=== PATIENT | male | born 1955 | race Caucasian/White ===

== ENCOUNTER 2018-05-31 16:29 | Emergency (ER) | payer BC ==
[2018-05-31 18:47] LABS: ABS Basophils 0.1 10^3/ul (0-0.2); ABS Eosinophils 0.1 10^3/ul (0-0.6); ABS Lymphocytes 2.2 10^3/ul (1.0-4.8); ABS Monocytes 0.7 10^3/ul (0-0.8); ABS Neutrophils 6.1 10^3/ul (1.5-7.7); ABS Nucleated RBC 0 10^3/ul; Eosinophil % 0.6 % (0-6); Hematocrit 43 % (42-52); Hemoglobin 14.9 g/dl (14.0-18.0); Lymphocyte % 23.6 % (25-47); Mean Corpuscular HGB Conc 35 g/dl (31-36); Mean Corpuscular Hemoglobin 29 pg (27-31); Mean Corpuscular Volume 85 fL (80-94); Mean Platelet Volume 7.2 um3 (7.4-10.4); Nucleated Red Blood Cells % 0.1; Platelet Count 276 10^3/ul (150-450); Red Blood Count 5.05 10^6/ul (4.00-5.40); Red Cell Distribution Width 14 % (10.5-15); White Blood Count 9.2 10^3/ul (3.5-10.8)
--- NOTE | 2018-05-31 18:57 | ED ---
Hypertension - HPI Summary HPI Summary: This pt is a 62 y/o male presenting to [facility] c/o hypertension today. Pt reports he has hx of HTN is currently on antihypertensive medications. Pt notes that for about 1 year he has had his blood pressure run around 130/80s. He just recently came back from his trip in [place] and found out one of his BP medications, Valsartan, was recalled. Pt was switched to Irbesartan 3 week ago and had his atenolol increased to 50 mg by his PCP recently. Pt has also taken approximately 12 pills of ibuprofen 200 mg that he purchased OTC in [place] and was told by his PCP's complaint investigations officer that this might contradict his blood pressure medications. He has an upcoming hip replacement surgery scheduled for July 19 for which he notes he has been resting more than usual in preparation for it. Denies chest pain, SOB, headache, blurry vision, abd pain, nausea, vomiting, diarrhea, constipation, swelling in LE. - History of Current Complaint Chief Complaint: EDHypertension Stated Complaint: HIGH BLOOD PRESSURE Time Seen by Provider: 05/31/18 18:32 Hx Obtained From: Patient Onset/Duration: Started Hours Ago, Still Present Timing: Lasting Hours Reported Blood Pressure Prior To Arrival: 190s/100s Aggravating Factor(s): Nothing Alleviating Factor(s): Nothing Associated Signs & Symptoms: Anxiety/Stress - recent stress, Other: - NEG: chest pain, SOB, headache, blurry vision, abd pain, nausea, vomiting, diarrhea, constipation, swelling in LE. - Allergies/Home Medications Allergies/Adverse Reactions: Allergies Allergy/AdvReac Type Severity Reaction Status Date / Time lisinopril Allergy Coughing Verified 05/31/18 16:46 PMH/Surg Hx/FS Hx/Imm Hx Endocrine/Hematology History: Denies: Hx Diabetes Cardiovascular History: Reports: Hx Hypercholesterolemia, Hx Hypertension Infectious Disease History: No Infectious Disease History: Denies: Traveled Outside the [place] in Last 30 Days - Family History Known Family History: Positive: Cardiac Disease - Father with fatal SC at 76 y/o - Social History Alcohol Use: None Substance Use Type: Reports: None Smoking Status (MU): Never Smoked Tobacco Review of Systems Negative: Fever, Chills Negative: Blurred Vision Cardiovascular: Other - hypertension Negative: Chest Pain Negative: Shortness Of Breath Negative: Abdominal Pain, Vomiting, Diarrhea, Nausea, Other - constipation Negative: Edema - in LE Negative: Headache All Other Systems Reviewed And Are Negative: Yes Physical Exam - Summary Physical Exam Summary: VITAL SIGNS: Reviewed. GENERAL: Patient is a well-developed and nourished male who is lying comfortable in the stretcher. Patient is not in any acute respiratory distress. HEAD AND FACE: No signs of trauma. No ecchymosis, hematomas or skull depressions. No sinus tenderness. EYES: PERRLA, EOMI x 2, No injected conjunctiva, no nystagmus. EARS: Hearing grossly intact. Ear canals and tympanic membranes are within normal limits. MOUTH: Oropharynx within normal limits. NECK: Supple, trachea is midline, no adenopathy, no JVD, no carotid bruit, no c- spine tenderness, neck with full ROM. CHEST: Symmetric, no tenderness at palpation LUNGS: Clear to auscultation bilaterally. No wheezing or crackles. CVS: Regular rate and rhythm, S1 and S2 present, no murmurs or gallops appreciated. ABDOMEN: Soft, non-tender. No signs of distention. No rebound, no guarding, and no masses palpated. Bowel sounds are normal. EXTREMITIES: FROM in all major joints, no edema, no cyanosis or clubbing. NEURO: Alert and oriented x 3. No acute neurological deficits. Speech is normal and follows commands. SKIN: Dry and warm Triage Information Reviewed: Yes Vital Signs On Initial Exam: Initial Vitals Temp Pulse Resp BP Pulse Ox 97.3 F 72 16 178/108 98 05/31/18 16:41 05/31/18 16:41 05/31/18 16:41 05/31/18 16:41 05/31/18 16:41 Vital Signs Reviewed: Yes Diagnostics - Vital Signs Vital Signs Temp Pulse Resp BP Pulse Ox 05/31/18 18:40 21 05/31/18 18:38 179/112 05/31/18 16:41 97.3 F 72 16 178/108 98 - Laboratory Lab Results: Lab Results 05/31/18 Range/Units 18:41 WBC 9.2 (3.5-10.8) 10^3/ul RBC 5.05 (4.00-5.40) 10^6/ul Hgb 14.9 (14.0-18.0) g/dl Hct 43 (42-52) % MCV 85 (80-94) fL MCH 29 (27-31) pg MCHC 35 (31-36) g/dl RDW 14 (10.5-15) % Plt Count 276 (150-450) 10^3/ul MPV 7.2 L (7.4-10.4) um3 Neut % (Auto) 66.6 (38-83) % Lymph % (Auto) 23.6 L (25-47) % [place] % (Auto) 8.1 H (0-7) % Eos % (Auto) 0.6 (0-6) % Baso % (Auto) 1.1 (0-2) % Absolute Neuts (auto) 6.1 (1.5-7.7) 10^3/ul Absolute Lymphs (auto) 2.2 (1.0-4.8) 10^3/ul Absolute Monos (auto) 0.7 (0-0.8) 10^3/ul Absolute Eos (auto) 0.1 (0-0.6) 10^3/ul Absolute Basos (auto) 0.1 (0-0.2) 10^3/ul Absolute Nucleated RBC 0 10^3/ul Nucleated RBC % 0.1 Result Diagrams: 05/31/18 18:41 05/31/18 18:41 Lab Statement: Any lab studies that have been ordered have been reviewed, and results considered in the medical decision making process. - EKG 18:57 Cardiac Rate: NL - at 67 bpm EKG Rhythm: Sinus Rhythm EKG Interpretation: No ST elevations. Re-Evaluation - Re-Evaluation First Eval Re-Evaluation Time: 20:35 Comment: I reviewed the lab results with the pt. He will be discharged home with follow up from his PCP. Hypertension Course/Dx - Course Assessment/Plan: This pt is a 62 y/o male presenting to [facility] c/o hypertension today. Pt reports he has hx of HTN is currently on antihypertensive medications. Pt notes that for about 1 year he has had his blood pressure run around 130/80s. He just recently came back from his trip in [place] and found out one of his BP medications, Valsartan, was recalled. Pt was switched to Irbesartan 3 week ago and had his atenolol increased to 50 mg by his PCP recently. Pt has also taken approximately 12 pills of ibuprofen 200 mg that he purchased OTC in [place] and was told by his PCP's complaint investigations officer that this might contradict his blood pressure medications. He has an upcoming hip replacement surgery scheduled for July 19 for which he notes he has been resting more than usual in preparation for it. Denies chest pain, SOB, headache, blurry vision, abd pain, nausea, vomiting, diarrhea, constipation, swelling in LE. Blood work without any significant abnormality except for glucose of 105. Initially in the ED course the patient's blood pressure was 179/112 and I ordered hydralazine since the patient's heart rate is only in the 60s. However , a manual blood pressure is only 156/99. Therefore the patient was given clonidine for his hypertension. Currently his blood pressure has significantly improved. The patient continues to be asymptomatic. Therefore at this point the patient will be discharged home with follow-up from his PCP. I recommended the patient not to take any NSAIDs for the pain, but he was advised he may take Tylenol. Also he needs to follow up with the primary care physician for adjustments on his blood pressure medications. The patient understands and agrees. He is hemodynamically stable, alert and oriented 3. Before discharge patient LYNN is reported to be 140/113. I performed a manual BP and its 130/92. He continues to be asymptomatic. he will be discharged home with F/U of PCP - Diagnoses Differential Diagnosis/HQI PQRI: Hypertension, Hypertensive Crisis, Hypertensive Urgency Provider Diagnoses: Uncontrolled hypertension Discharge - Sign-Out/Discharge Documenting (check all that apply): Patient Departure - Discharge home - Discharge Plan Condition: Stable Disposition: HOME Prescriptions: cloNIDine TAB* [Catapres 0.1 MG TAB*] 0.1 mg PO DAILY PRN #12 tab MDD 1 PRN Reason: hypertension Patient Education Materials: Hypertension (ED) Referrals: Libby Montero MD [Primary Care Provider] - Additional Instructions: FOLLOW UP WITH YOUR PRIMARY CARE PROVIDER WITHIN ONE WEEK FOR HIGH BLOOD PRESSURE NOTED TODAY. RETURN TO THE ED FOR ANY NEW OR WORSENING SYMPTOMS. - Billing Disposition and Condition Condition: STABLE Disposition: Home - Attestation Statements Document Initiated by Scribe: Yes Documenting Scribe: Mai Bauer Provider For Whom Scribe is Documenting (Include Credential): Abdoulaye Ledezma MD Scribe Attestation: Mai Burroughs, scribed for Abdoulaye Ledezma MD on 06/02/18 at 0908. Scribe Documentation Reviewed: Yes Provider Attestation: The documentation as recorded by the scribe, Mai Bauer accurately reflects the service I personally performed and the decisions made by me, Abdoulaye Ledezma MD
[2018-05-31] MEDS: hydrALAZINE IV* 20 MG/ML VIAL IV SLOW PU ONE ×2 (19:14→21:25)
[2018-05-31] MEDS ORDERED: cloNIDine TAB* 0.1 MG PO ONE (19:46)
[2018-05-31 21:23] VITALS: BP 146/113
== END 2018-05-31 21:23 | disposition home or self-care (01) ==
LOC: ED 16:29
DX: I10 Essential (primary) hypertension (principal)
CPT/HCPCS: 36415; 80048; 84484; 85025; 93005; 96374; 99283; A9270-GY; J0360